=== PATIENT | female | born 1980 | race Caucasian/White ===

== ENCOUNTER 2017-10-18 21:22 | Emergency (ER) | payer OTHER, SELFPAY ==
[2017-10-18 21:23] VITALS: BP 127/80; PULSE 108; RESP 16; TEMP 37.2; O2SAT 99; BMI 32.7
[2017-10-18 23:42] LABS: Absolute Lymphocyte Count 1.47 X10^3/ul (0.83-4.51); Basophil# 0.02 X10^3/uL; Basophil% 0.1 % (0-1); Eosinophil# 0.01 X10^3/uL; Eosinophils% 0.1 % (0-5); Hematocrit 38.7 % (37-47); Lymphocyte # 1.47 X10^3/ul (4.0); Lymphocyte % 10.8 % (19-41); Mean Corp Hgb Conc 33.6 g/gl (32-36); Mean Corpuscular Hgb 28.9 pg (27.0-32.0); Mean Platelet Vol. 9.5 fl (6.2-12.0); Monocyte# 0.99 X10^3/uL; Monocyte% 7.3 % (0-10); Neutrophil # 11.04 X10^3/uL (2.7-7.7); Neutrophil % 81.5 % (47-70); Platelet Count 300 K/mm3 (150-450); RBC Distribution Width SD 40.3 fl (35.1-43.9); White Blood Count 13.6 K/mm3 (4.4-11.0)
[2017-10-18 23:45] LABS: POSITIVE COUNT NO; POSITIVE DIFFERENTIAL NO; POSITIVE MORPHOLOGY NO
[2017-10-18 23:55] LABS: Anion Gap 7 (5-15); BUN 11 mg/dL (7-18); BUN/Creat Ratio 11.6 RATIO (10-20); Calcium,Total 9.4 mg/dL (8.5-10.1); Chloride 102 mmol/L (98-107); Creatinine, Serum 0.95 mg/dL (0.55-1.02); EST Glomerular Filtration Rate 70 mL/min (>60); Est Glom Filt Rate - Afr Amer 84 mL/min (>60); Estimated Creatinine Clearance 68.65 ml/min; Glucose 106 mg/dL (74-106); Potassium 3.9 mmol/L (3.5-5.1); Sodium Level 134 mmol/L (136-145)
--- NOTE | 2017-10-19 00:02 | CT_ITS ---
STUDY: CT SOFT TISSUE NECK WITH CONTRAST REASON FOR EXAM: Female, 37 years old. Body aches. Soft tissue RADIATION DOSAGE (If Supplied By Facility): CTDIvol = ( 19.62 ) mGy, DLP = ( 612.32 ) mGycm TECHNIQUE: The patient was scanned in a multi-detector CT scanner. High resolution transaxial imaging was performed following intravenous administration of 75ML ml of Isovue 300 contrast material. Sagittal and coronal images were reconstructed. Individualized dose optimization techniques were used for this CT. COMPARISON: None. FINDINGS: SUPRAHYOID HEAD AND NECK TURPENTINE DISTILLER SPACE (INCLUDING SUPRAZYGOMATIC PORTION): Normal with no evidence of an accessory parotid lobe. No calcification in parotid duct. PARAPHARYNGEAL SPACE: Normal and symmetric. No evidence of asymmetric pterygoid plexus. RETROPHARYNGEAL SPACE: Normal with no enlarged nodes of Rou[place] laterally CAROTID SPACE: Normal PERIVERTEBRAL SPACE: The prevertebral and paraspinal components are normal. PAROTID SPACE: Negative PHARYNGEAL MUCOSAL SPACE: The nasopharyngeal and oropharyngeal spaces including the tongue base are normal with no tonsillitis, adenoidal hypertrophy or any neoplastic processes. ORAL CAVITY : The mucosal surfaces including the anterior two thirds of the tongue and the submandibular and sublingual spaces are normal INFRAHYOID HEAD AND NECK: VISCERAL SPACE: The thyroid, trachea, esophagus, larynx and hypopharynx are normal. THE CAROTID, RETROPHARYNGEAL, PERIVERTEBRAL and POSTERIOR CERVICAL SPACES (Containing The Spinal Accessory Lymph Nodes): Normal . ORBITS AND PARANASAL SINUSES: Negative CERVICAL LYMPH NODES: A mild level IIa adenopathy on both sides CT/Soft Tissue Neck WITH Contrast IMPRESSION: No evidence of any inflammatory or neoplastic processes in the pharyngeal mucosal space. Specifically there is no tonsillitis or tonsillar abscess. Electronically Signed: Dalton Cruz, at 2:03 EDT Tel , Service support ,
[2017-10-19 00:04] LABS: International Normalized Ratio 1.1; Prothrombin Time (Protime)PT. 13.8 SECONDS (11.7-14.9)
--- NOTE | 2017-10-19 00:07 | ED.DCSUM_ITS ---
- ER Visit Summary Date of Service: 10/19/17 Chief Complaint: Vertigo History of Present Illness: The patient is a 37 F who presents for 1 day of vertigo with associated complaints of sore throat difficulty swallowing. Patient states she has a remote history of vertigo and started having vertigo this morning, with difficulty balancing. As the day progressed she developed a sore throat and is having difficulty swallowing now. She is also having bilateral ear pain and fever at home that she treated with antipyretics. Patient denies any vision changes, chest pain, shortness of breath, cough, nausea or vomiting, abdominal pain or denies any certain for . History of hysterectomy. Physical Examination: Vital signs: afebrile, hemodynamically stable, no hypoxia on room air General: well nourished, well developed, appears ill Skin: very warm, flushed, moist, no rash, no pallor HEENT: normocephalic and atraumatic; PERRL, EOMI, positive horizontal nystagmus , dry mucous membranes on the posterior oropharyngeal erythema, symmetric swelling and mild exudate, bilateral tender cervical lymphadenopathy, no meningismus, submandibular tenderness and mild fullness, no sublingual edema, exam complicated by body habitus and redundant soft tissue of neck Cardiovascular: Tachycardic rate and rhythm without murmurs, no peripheral edema , 2+ pulses all distal extremities Respiratory: No increased work of breathing, lungs are clear to auscultation bilaterally, no rales, rhonchi or wheezing Abdominal: Abdomen is soft, nontender with normoactive bowel sounds, no guarding or rebound, no masses MSK: Moves all extremities, no deformities, normal strength Neuro: Awake and alert, oriented ?4. No facial droop, sensation and motor function intact and symmetric Test Results: Abnormal Lab Results 10/18/17 10/18/17 10/18/17 23:25 23:25 23:25 WBC 13.6 H RBC 4.50 Hgb 13.0 Hct 38.7 MCV 86.0 MCH 28.9 MCHC 33.6 RDW 13.0 RDW Differential 40.3 Plt Count 300 MPV 9.5 Immature Gran % (Auto) 0.200 Neut % (Auto) 81.5 H Lymph % (Auto) 10.8 L Mayes % (Auto) 7.3 Eos % (Auto) 0.1 Baso % (Auto) 0.1 Absolute Neuts (auto) 11.0 H Absolute Lymphs (auto) 1.47 Total Counted Not Reportable PT 13.8 INR 1.1 APTT 32.0 Sodium 134 L Potassium 3.9 Chloride 102 Carbon Dioxide 25.0 Anion Gap 7 BUN 11 Creatinine 0.95 Estim Creat Clear Calc 68.65 Est GFR (MDRD) Af Amer 84 Est GFR (MDRD) Non-Af 70 BUN/Creatinine Ratio 11.6 Glucose 106 Lactic Acid Calcium 9.4 Urine Color Urine Clarity Urine pH Ur Specific [place] Urine Protein Urine Glucose (UA) Urine Ketones Urine Occult Blood Urine Nitrite Urine Bilirubin Urine Urobilinogen Ur Leukocyte Esterase Urine RBC Urine WBC Ur Squamous Epith Cells Urine Bacteria Urine Mucus 10/19/17 10/19/17 00:10 00:20 WBC RBC Hgb Hct MCV MCH MCHC RDW RDW Differential Plt Count MPV Immature Gran % (Auto) Neut % (Auto) Lymph % (Auto) Mayes % (Auto) Eos % (Auto) Baso % (Auto) Absolute Neuts (auto) Absolute Lymphs (auto) Total Counted PT INR APTT Sodium Potassium Chloride Carbon Dioxide Anion Gap BUN Creatinine Estim Creat Clear Calc Est GFR (MDRD) Af Amer Est GFR (MDRD) Non-Af BUN/Creatinine Ratio Glucose Lactic Acid 0.6 Calcium Urine Color Yellow Urine Clarity Sl. Cloudy Urine pH 6.0 Ur Specific [place] 1.025 Urine Protein 15 H Urine Glucose (UA) Normal Urine Ketones Negative Urine Occult Blood 10 H Urine Nitrite Negative Urine Bilirubin Negative Urine Urobilinogen Normal Ur Leukocyte Esterase 25 H Urine RBC 0 SEEN Urine WBC 0-5 SEEN Ur Squamous Epith Cells 50-100 SEEN Urine Bacteria 0 SEEN Urine Mucus 2+ Clinical Impression(s) from Imaging Studies Soft Tissue Neck CT 10/19/17 00:02 IMPRESSION: No evidence of any inflammatory or neoplastic processes in the pharyngeal mucosal space. Specifically there is no tonsillitis or tonsillar abscess. Electronically Signed: Dalton Cruz, at 2:03 EDT Tel , Service support , Chest X-Ray 10/19/17 00:35 IMPRESSION: No acute findings in the lungs Electronically Signed: Dalton Cruz, at 0:58 EDT Tel , Service support , Medications Given Discontinued Medications Acetaminophen (Tylenol) 1,000 mg PO X1 ONE Stop: 10/19/17 00:02 Last Admin: 10/19/17 00:49 Dose: 1,000 mg Dexamethasone (Decadron) 8 mg PO X1 ONE Stop: 10/19/17 03:48 Last Admin: 10/19/17 03:56 Dose: 8 mg Diazepam (Valium) 4 mg IV X1 ONE Stop: 10/19/17 00:03 Diazepam (Valium) 5 mg PO X1 ONE Stop: 10/19/17 00:43 Last Admin: 10/19/17 00:49 Dose: 5 mg Sodium Chloride () 1,000 mls @ 50 mls/hr IV .Q20H GUILLAUME Last Admin: 10/19/17 00:41 Dose: Not Given Sodium Chloride () 1,000 mls @ 500 mls/hr IV .Q2H GUILLAUME Stop: 10/19/17 02:04 Last Admin: 10/19/17 00:49 Dose: 500 mls/hr Penicillin V Potassium (Pen-Vee K , V-Cillin K) 500 mg PO X1 ONE Stop: 10/19/17 03:48 Last Admin: 10/19/17 03:56 Dose: 500 mg Emergency Department Course and Treatment: Pt presents with c/o vertigo with history of same, but vertigo seems triggered today by an infectious pathology, as she has sore throat, difficulty swallowing, general malaise and myalgias. Pt has no measured fever, but is warm and flushed, sweaty. Mild tachycardia. Pt given tylenol for fever/aches and valium for vertigo. IV fluids for hydration. Given the sore throat and difficulty swallowing with sensation of throat swelling deep and discomfort lying flat (although able to do so), CT soft tissue neck performed to look for deep space infection. CT was unremarkable. Pt does have bilateral anterior tender cervical LAD and posterior exudate. Presentation is concerning for strep infection, and strep culture sent. Pt empirically started on PCN VK. Pt given dexamethasone for symptomatic relief. Pt had resolution of vertigo with valium. Pt felt better after fluids and symptomatic control. Pt dc home with rx for PCN and meclizine. Treatment Plan: [] Disposition: [] Impression: strep pharyngitis This note was generated with [employer] dictation software. It may contain incorrect words, spelling, and punctuation that were not noted in review of the chart prior to signing ED Disposition - Plan for ED Patient: Disposition: Home or Assisted Living Chief Complaint: Dizziness Instructions: ED Strep Pharyngitis Poss Prescriptions: Meclizine HCl 25 mg PO TID PRN PRN #20 tab PRN Reason: Vertigo Penicillin V Potassium 500 mg PO BID #20 tab Referrals: Glo Cao [Primary Care Provider] - 3-5 Days if not improving Additional Instructions: Please take your penicillin as prescribed. You were given a dose of steroids in the emergency department to help with the swelling and pain in her throat. You may use [id number] Tylenol or ibuprofen as needed for fever and pain. Drink plenty of fluids to stay hydrated. Use the meclizine as needed for any further vertigo. If you have any worsening of your condition or any new concerning symptoms, please return immediately to the emergency department for another evaluation.
[2017-10-19 00:18] LABS: Bacteria 0 SEEN /hpf (None Seen); Red Blood Cells-Urine 0 SEEN /hpf (0-5)
[2017-10-19 00:19] LABS: Color, Urine Yellow (Yellow); Glucose, Dipstick Normal (Normal); Ketone-Dipstick Negative (Negative); Leukocyte Esterase-Dipstick 25 /ul (Negative); Nitrite-Dipstick Negative (Negative); Occult Blood-Urine 10 /ul (Negative); Protein-Dipstick 15 mg/dl (Negative); Specific Gravity, Urine 1.025 (1.002-1.030); Urine Bilirubin Dipstick Negative (Negative); Urine Clarity Sl. Cloudy (Clear); Urine Urobilinogen Normal (Normal)
[2017-10-19 00:25] LABS: Mucous, Urine 2+ /hpf (<or=2+); Squamous Epithelial Cells - UA 50-100 SEEN /hpf (5-10); White Blood Cells 0-5 SEEN /hpf (0-5)
--- NOTE | 2017-10-19 00:35 | RAD_ITS ---
STUDY: X-RAY CHEST REASON FOR EXAM: Female, 37 years old. Shortness of breath. Sore throat. TECHNIQUE: 1 view COMPARISON: February 23, 2016 FINDINGS: The lungs are clear and expanded. There is no demonstrated pleural abnormality. Normal size heart. Normal mediastinum and kylie. Normal visualized pulmonary arteries. Normal visualized aortic arch and descending thoracic aorta. A mild thoracic scoliosis with convexity to the right. Normal visualized ribs, clavicles, and shoulders. There is no demonstrated abnormality of the visualized soft tissue structures of the upper abdomen. RAD/Chest 1 View (Portable) IMPRESSION: No acute findings in the lungs Electronically Signed: Dalton Cruz, at 0:58 EDT Tel , Service support ,
[2017-10-19] MEDS: 0.9% Normal Saline 1,000 ML 500 ML IV (00:49)
[2017-10-19] MEDS: Acetaminophen 500 MG Tablet 1000 MG PO (00:49)
[2017-10-19] MEDS: diazePAM 5 MG Tablet PO (00:49)
[2017-10-19 00:51] VITALS: BP 113/69; PULSE 102; RESP 20; O2SAT 96
[2017-10-19 00:52] LABS: Lactic Acid 0.6 mmol/L (0.4-2.0)
[2017-10-19 01:53] VITALS: BP 122/60; PULSE 92; RESP 20; TEMP 37; O2SAT 98
[2017-10-19 03:46] VITALS: PULSE 90; RESP 20; O2SAT 99
--- NOTE | 2017-10-19 03:49 | ED.DEP ---
ED Disposition - Plan for ED Patient: Disposition: Home or Assisted Living Chief Complaint: Dizziness Instructions: ED Strep Pharyngitis Poss Prescriptions: Meclizine HCl 25 mg PO TID PRN PRN #20 tab PRN Reason: Vertigo Penicillin V Potassium 500 mg PO BID #20 tab Referrals: Glo Cao [Primary Care Provider] - 3-5 Days if not improving Additional Instructions: Please take your penicillin as prescribed. You were given a dose of steroids in the emergency department to help with the swelling and pain in her throat. You may use [id number] Tylenol or ibuprofen as needed for fever and pain. Drink plenty of fluids to stay hydrated. Use the meclizine as needed for any further vertigo. If you have any worsening of your condition or any new concerning symptoms, please return immediately to the emergency department for another evaluation.
--- NOTE | 2017-10-19 03:53 | DCINST.ED_ITS ---
ED Disposition - Plan for ED Patient: Disposition: Home or Assisted Living Chief Complaint: Dizziness Instructions: ED Strep Pharyngitis Poss Prescriptions: Meclizine HCl 25 mg PO TID PRN PRN #20 tab PRN Reason: Vertigo Penicillin V Potassium 500 mg PO BID #20 tab Referrals: Glo Cao [Primary Care Provider] - 3-5 Days if not improving Additional Instructions: Please take your penicillin as prescribed. You were given a dose of steroids in the emergency department to help with the swelling and pain in her throat. You may use [id number] Tylenol or ibuprofen as needed for fever and pain. Drink plenty of fluids to stay hydrated. Use the meclizine as needed for any further vertigo. If you have any worsening of your condition or any new concerning symptoms, please return immediately to the emergency department for another evaluation.
[2017-10-19] MEDS: Penicillin Vk 250 MG Tablet 500 MG PO (03:56)
[2017-10-19 04:00] VITALS: BP 122/68; PULSE 87; RESP 18; O2SAT 96
== END 2017-10-19 04:01 | disposition home or self-care (01) ==
PROVIDERS: Emergency Provider Emergency Medicine; Family Provider Internal Medicine; PCP Internal Medicine
DX: J02.0 Streptococcal pharyngitis (principal); Z79.899 Other long term (current) drug therapy
CPT/HCPCS: 70491; 71045; 80048; 81001; 83605; 85025; 85610; 85730; 87040; 87086; 87088; 87880; 96360; 96361; 99285; J7030; Q9967; A4216

== ENCOUNTER 2018-03-31 11:06 | Emergency (ER) | payer OTHER, SELFPAY ==
[2018-03-31 11:09] VITALS: BP 115/63; PULSE 82; RESP 13; TEMP 36.7; O2SAT 98; BMI 33.4
[2018-03-31 11:13] VITALS: PULSE 78; RESP 11; O2SAT 98
--- NOTE | 2018-03-31 11:22 | EKG12_ITS ---
Test Reason : SYNCOPE Blood Pressure : / mmHG Vent. Rate : 081 BPM Atrial Rate : 081 BPM P-R Int : 128 ms QRS Dur : 084 ms QT Int : 374 ms P-R-T Axes : 010 051 011 degrees QTc Int : 434 ms Normal sinus rhythm Normal ECG Confirmed by JACK WU MD ([id number]), movie editor FARNAZ MATHEWS ([id number]) on 04/03/2018 3:08:16 PM Referred By: MENDY Confirmed By:JACK WU MD
--- NOTE | 2018-03-31 11:23 | ED.VISSUMM ---
- ER Visit Summary Date of Service: 03/31/18 Chief Complaint: Syncopal episode in [place] History of Present Illness: The patient is a 37 F history of depression and anxiety. Patient was at [employer] today she said she felt dizzy when the sit down and kind of missed the chair and onto the floor. Her significant other is with her and said she was not injured. He believes she might have been unconscious for as long as 5 minutes. No seizure activity. She states she passed out 5-7 years ago. She has no cardiac history. States she has been feeling fine. She has been under a lot of stress earlier this year around June they lost a child to medical problems. She states she has been eating and drinking less. Physical Examination: Middle-aged female. Vital signs are stable. Afebrile. She is emotionally upset and tearful. She is anxious. She is in no physical distress. HEENT exam pupils round reactive light. Dry mucous membranes. No signs of trauma to her face or scalp. No facial droop. Normal speech. Neck nontender. Trachea midline. No lymphadenopathy. Lungs clear to auscultation bilaterally. Heart regular rhythm rate about 80 no murmur. Chest wall nontender. Abdomen soft nontender. Normal bowel sounds no peritoneal signs. Patient is moving all 4 extremities. She is neurovascularly intact. She has equal symmetrical special services coordinator strength. Dorsi plantar flexion intact. She can lift either leg off the bed. Neurologically she is awake alert without any focal motor or sensory deficits. Normal speech. She is emotionally anxious and tearful. Test Results: CBC normal. White count of 8. Hemoglobin 12. Electrolytes normal. Normal gap and creatinine. Orthostatic vital signs were negative. Patient stood without any difficulty. EKG sinus rhythm rate 81 with no acute A. No dysrhythmia. No signs of ischemia. Emergency Department Course and Treatment: Patient had a syncopal event. She has a normal exam. P.o. Ativan for anxiety Treatment Plan: On repeat exam at 1300 patient is doing well. I went over all test results with her, her significant other and other females that were present in the room. She is comfortable being discharged home and will follow-up as an outpatient with her primary care provider. Disposition: Discharge Impression: Acute syncope uncertain etiology Acute anxiety This note was generated with [employer] software. It may contain incorrect words, spelling, and punctuation that were not noted in review of the chart prior to signing ED Disposition - Plan for ED Patient: Chief Complaint: Syncope Referrals: Glo Cao [Primary Care Provider] -
--- NOTE | 2018-03-31 11:26 | ED.DCSUM_ITS ---
- ER Visit Summary Date of Service: 03/31/18 Chief Complaint: Syncopal episode in [employer] History of Present Illness: The patient is a 37 F history of depression and anxiety. Patient was at [employer] today she said she felt dizzy when the sit down and kind of missed the chair and onto the floor. Her significant other is with her and said she was not injured. He believes she might have been unconscious for as long as 5 minutes. No seizure activity. She states she passed out 5-7 years ago. She has no cardiac history. States she has been feeling fine. She has been under a lot of stress earlier this year around June they lost a child to medical problems. She states she has been eating and drinking less. Physical Examination: Middle-aged female. Vital signs are stable. Afebrile. She is emotionally upset and tearful. She is anxious. She is in no physical distress. HEENT exam pupils round reactive light. Dry mucous membranes. No signs of trauma to her face or scalp. No facial droop. Normal speech. Neck nontender. Trachea midline. No lymphadenopathy. Lungs clear to auscultation bilaterally. Heart regular rhythm rate about 80 no murmur. Chest wall nontender. Abdomen soft nontender. Normal bowel sounds no peritoneal signs. Patient is moving all 4 extremities. She is neurovascularly intact. She has equal symmetrical rural health consultant strength. Dorsi plantar flexion intact. She can lift either leg off the bed. Neurologically she is awake alert without any focal motor or sensory deficits. Normal speech. She is emotionally anxious and tearful. Test Results: CBC normal. White count of 8. Hemoglobin 12. Electrolytes normal. Normal gap and creatinine. Orthostatic vital signs were negative. Patient stood without any difficulty. EKG sinus rhythm rate 81 with no acute A. No dysrhythmia. No signs of ischemia. Emergency Department Course and Treatment: Patient had a syncopal event. She has a normal exam. P.o. Ativan for anxiety Treatment Plan: On repeat exam at 1300 patient is doing well. I went over all test results with her, her significant other and other females that were present in the room. She is comfortable being discharged home and will follow-up as an outpatient with her primary care provider. Disposition: Discharge Impression: Acute syncope uncertain etiology Acute anxiety This note was generated with [employer] software. It may contain incorrect words, spelling, and punctuation that were not noted in review of the chart prior to signing ED Disposition - Plan for ED Patient: Chief Complaint: Syncope Referrals: Glo Cao [Primary Care Provider] -
[2018-03-31] MEDS: Aspirin 81 MG TAB.CHEW 324 MG PO (11:30)
[2018-03-31] MEDS: 0.9% Normal Saline 1,000 ML 999 ML IV (11:30)
[2018-03-31] MEDS: LORazepam 1 MG Tablet PO (11:30)
[2018-03-31 11:39] LABS: Absolute Lymphocyte Count 3.23 X10^3/ul (0.83-4.51); Basophil# 0.06 X10^3/uL; Basophil% 0.7 % (0-1); Eosinophil# 0.24 X10^3/uL; Hemoglobin 12.3 g/dl (12.0-15.0); Lymphocyte # 3.23 X10^3/ul (4.0); Lymphocyte % 40.1 % (19-41); Mean Corp Hgb Conc 33.2 g/gl (32-36); Mean Corpuscular Hgb 28.5 pg (27.0-32.0); Mean Corpuscular Volume 85.6 fL (81-99); Monocyte# 0.53 X10^3/uL; Monocyte% 6.6 % (0-10); Neutrophil # 3.99 X10^3/uL (2.7-7.7); Neutrophil % 49.5 % (47-70); POSITIVE COUNT NO; POSITIVE DIFFERENTIAL NO; POSITIVE MORPHOLOGY NO; Platelet Count 291 K/mm3 (150-450); RBC Distribution Width CV 12.9 % (11.6-14.6); Red Blood Count 4.32 M/mm3 (4.2-5.4); White Blood Count 8.1 K/mm3 (4.4-11.0)
[2018-03-31 11:46] LABS: Anion Gap 5 (5-15); BUN 14 mg/dL (7-18); BUN/Creat Ratio 17.4 RATIO (10-20); Calcium,Total 9.4 mg/dL (8.5-10.1); Chloride 108 mmol/L (98-107); EST Glomerular Filtration Rate 84 mL/min (>60); Est Glom Filt Rate - Afr Amer 102 mL/min (>60); Estimated Creatinine Clearance 81.53 ml/min; Glucose 96 mg/dL (74-106); Potassium 4.2 mmol/L (3.5-5.1); Sodium Level 139 mmol/L (136-145)
[2018-03-31 12:01] VITALS: BP 127/83; PULSE 74; RESP 16; O2SAT 98
--- NOTE | 2018-03-31 12:45 | ED.RN ---
Was called to bedside with report pt had passed out. Reported she did not respond to painful stimuli. Pt was alert as I entered room and verbally answered my questions. She denied pain but stated she felt like she couldn't breathe. The following vital signs were current 127/83, 74, 15, 98%. She displayed no distress in her resp effort. She seemed groggy.
[2018-03-31 13:02] VITALS: BP 121/79; BP 123/81; BP 126/74; PULSE 71; PULSE 83
--- NOTE | 2018-03-31 13:06 | ED.DEP ---
ED Disposition - Plan for ED Patient: Disposition: Home or Assisted Living Chief Complaint: Syncope Instructions: ED Fainting Unkn Cause Referrals: Glo Cao [Primary Care Provider] - As Needed Additional Instructions: Plenty of fluids and rest. Follow-up with your primary care provider for repeat evaluation.
[2018-03-31 13:14] VITALS: BP 123/81; PULSE 83; RESP 16; O2SAT 99
--- OUTSIDE RECORDS SUMMARY | 2018-07-03 13:22 | XMS RPT_ITS ---
:1980 Author Organization OHIP Care Team Providers Name Role Phone [place], [place] Primary Care Unavailable James Flores Attending Unavailable [place], [place] Primary Care Unavailable Vanessa Rausch Attending Unavailable Zumbar, Rafa Admitting Unavailable Zumbar, Rafa Attending Unavailable Venedocia, Nj S Primary Care Unavailable Zumbar, Rafa Admitting Unavailable Zumbar, Rafa Attending Unavailable Venedocia, Nj S Primary Care Unavailable Venedocia, Nj S Attending Unavailable Venedocia, Nj S Primary Care Unavailable Zumbar, Rafa Admitting Unavailable Zumbar, Rafa Attending Unavailable [place], Nj S Primary Care Unavailable Gutierrez, Leila S Admitting Unavailable Gutierrez, Leila S Attending Unavailable Vened[place]ia, Nj S Primary Care Unavailable [place]ened[place]ia, Nj S Attending Unavailable Vened[place]ia, Nj S Primary Care Unavailable Vened[place]ia, Nj S Attending Unavailable Venedocia, Nj S Primary Care Unavailable Zumbar, Rafa Admitting Unavailable Zumbar, Rafa Attending Unavailable Venedocia, Nj S Primary Care Unavailable Venedocia, Nj S Attending Unavailable Vened[place]ia, Nj S Primary Care Unavailable DEANGELO LIZAMA Attending Unavailable PROBLEMS PROBLEMS No Problem Records FoundPROCEDURES PROCEDURES No Procedure Records FoundRESULTS RESULTS 12 LEAD ELECTROCARDIOGRAM Observed: 04/03/2018 Status: F Source: ACE 3:08 PM [facility] Cardiovascular Services [address] [place] [address] 12 Lead EKG 03/31/18 1135 MR#: [id number] Acct: [id number] Name: RORO CROCKETT Rep #: [id number] : 1980 37 From: Juan R Green MD Attending Dr: Status: DEP ER Ordering Dr: James Flores MD Date: 03/31/18 Location: ED Sex: F C Admitted: Test Reason : SYNCOPE Blood Pressure : / mmHG Vent. Rate : 081 BPM Atrial Rate : 081 BPM P-R Int : 128 ms QRS Dur : 084 ms QT Int : 374 ms P-R-T Axes : 010 051 011 degrees QTc Int : 434 ms Normal sinus rhythm Normal ECG Confirmed by JUAN R GREEN MD ([id number]), editor farm journal FARNAZ MATHEWS ([id number]) on 04/03/2018 3:08:16 PM Referred By: Confirmed By:JUAN R GREEN MD 04/03/18 1508 Date Juan R Green MD CC: James Flores MD; [place] Saez EMERGENCY DEPARTMENT Observed: 03/31/2018 Status: F Source: ACE SUMMARY 4:03 PM [facility] Medical Records Department [address] [place] [address] Emergency Department Summary 03/31/18 1123 MR#: [id number] Acct: [id number] Name: RORO CROCKETT Rep #: [id number] : 1980 37 From: James Flores MD PCP: [place] ROJO Status: DEP ER - ER Visit Summary Date of Service: 03/31/18 Chief Complaint: Syncopal episode in restoration History of Present Illness: The patient is a 37 F history of depression and anxiety. Patient was at restoration today she said she felt dizzy when the sit down and kind of missed the chair and onto the floor. Her significant other is with her and said she was not injured. He believes she might have been unconscious for as long as 5 minutes. No seizure activity. She states she passed out 5-7 years ago. She has no cardiac history. States she has been feeling fine. She has been under a lot of stress earlier this year around June they lost a child to medical problems. She states she has been eating and drinking less. Physical Examination: Middle-aged female. Vital signs are stable. Afebrile. She is emotionally upset and tearful. She is anxious. She is in no physical distress. HEENT exam pupils round reactive light. Dry mucous membranes. No signs of trauma to her face or scalp. No facial droop. Normal speech. Neck nontender. Trachea midline. No lymphadenopathy. Lungs clear to auscultation bilaterally. Heart regular rhythm rate about 80 no murmur. Chest wall nontender. Abdomen soft nontender. Normal bowel sounds no peritoneal signs. Patient is moving all 4 extremities. She is neurovascularly intact. She has equal symmetrical security coordinator strength. Dorsi plantar flexion intact. She can lift either leg off the bed. Neurologically she is awake alert without any focal motor or sensory deficits. Normal speech. She is emotionally anxious and tearful. Test Results: CBC normal. White count of 8. Hemoglobin 12. Electrolytes normal. Normal gap and creatinine. Orthostatic vital signs were negative. Patient stood without any difficulty. EKG sinus rhythm rate 81 with no acute A. No dysrhythmia. No signs of ischemia. Emergency Department Course and Treatment: Patient had a syncopal event. She has a normal exam. P.o. Ativan for anxiety Treatment Plan: On repeat exam at 1300 patient is doing well. I went over all test results with her, her significant other and other females that were present in the room. She is comfortable being discharged home and will follow-up as an outpatient with her primary care provider. Disposition: Discharge Impression: Acute syncope uncertain etiology Acute anxiety This note was generated with Validus dictation software. It may contain incorrect words, spelling, and punctuation that were not noted in review of the chart prior to signing ED Disposition - Plan for ED Patient: Chief Complaint: Syncope Referrals: N[place] Rojo [Primary Care Provider] - What to do if you have Problems For any increased pain, shortness of breath, bleeding, nausea or vomiting, chest pain, or any unexpected problems, contact your Primary Care Provider. Call [facility] ([phone]) or report to the closest Emergency Room. Call 911 if necessary. 03/31/181602 <Electronically signed by James Flores MD> Date James Flores MD Cosigner Signature (If Indicated): Date CC: [place] ROJO DISCHARGE INSTRUCTION Observed: 03/31/2018 Status: F Source: REED 4:03 PM [facility] REPOSITORY [facility] Medical Records Department [address] [place] [address] Discharge Instruction 03/31/18 1306 MR#: [id number] Acct: [id number] Name: RORO CROCKETT Rep #: [id number] : 1980 37 From: James Flores MD PCP: [place] ROJO Status: DEP ER ED Disposition - Plan for ED Patient: Disposition: Home or Assisted Living Chief Complaint: Syncope Instructions: ED Fainting Unkn Cause Referrals: Nj Rojo [Primary Care Provider] - As Needed Additional Instructions: Plenty of fluids and rest. Follow-up with your primary care provider for repeat evaluation. What to do if you have Problems For any increased pain, shortness of breath, bleeding, nausea or vomiting, chest pain, or any unexpected problems, contact your Primary Care Provider. Call [facility] ([phone]) or report to the closest Emergency Room. Call 911 if necessary. 03/31/181602 <Electronically signed by James Flores MD> Date James Flores MD Cosigner Signature (If Indicated): Date CC: [place] ROJO CBC W/DIFF, AUTOMATED Collected: 03/31/2018 Status: F Source: REED 11:13 AM [facility] REPOSITORY TYPE CODE TESTS RESULT OUT OF RANGE REFERENCE UNITS LAB L100.1000 4.4-11.0 K/mm3 Normal WBC 8.1 LAB L100.1200 4.2-5.4 M/mm3 Normal RBC 4.32 LAB L100.1300 12.0-15.0 g/dl Normal HGB 12.3 LAB L100.1400 37-47 % Normal HCT 37.0 LAB L100.1500 81-99 fL Normal MCV 85.6 LAB L100.1600 27.0-32.0 pg Normal MCH 28.5 LAB L100.1700 32-36 g/gl Normal MCHC 33.2 LAB L100.1810 11.6-14.6 % Normal RDW CV 12.9 LAB L100.1820 35.1-43.9 fl Normal RDW SD 41.0 LAB L100.1900 150-450 K/mm3 Normal PLT 291 LAB L100.2000 6.2-12.0 fl Normal MPV 9.0 LAB L100.2100 47-70 % Normal NEUT% 49.5 LAB L100.2200 19-41 % Normal LY% 40.1 LAB L100.2300 0-10 % Normal MONO% 6.6 LAB L100.2400 0-5 % Normal EO% 3.0 LAB L100.2500 0-1 % Normal BASO% 0.7 LAB L100.2550 0.0-0.9 % Normal IM GRAN % 0.100 Result Comment: IG% - Immature Granulocytes (promyelocytes, myelocytes and metamyelocytes) > 1% indicates that a LEFT SHIFT is Present. LAB L100.2620 2.0-7.7 X10 3/uL Normal Absolute Neut 4.0 LAB L100.2720 0.83-4.51 X10 3/ul Normal Absolute Lymph 3.23 Performed By: #### L100.0100 #### [facility] [place], [address] BASIC METABOLIC Collected: 03/31/2018 Status: F Source: REED PROFILE (BMP) 11:13 AM [facility] REPOSITORY TYPE CODE TESTS RESULT OUT OF RANGE REFERENCE UNITS LAB L501.0100 74-106 mg/dL Normal GLU 96 Result Comment: Please note revised GLUCOSE reference range effective 2017. LAB L501.1000 7-18 mg/dL Normal BUN 14 LAB L501.1100 0.55-1.02 mg/dL Normal CREAT,SERUM 0.80 Result Comment: The validity of the calculated GFR AND GFRAA in patients over 70 years has not been determined. Clinical correlation is essential. LAB L501.1110 >60 mL/min Normal EST GFR 84 Result Comment: Non- GFR Calc LAB L501.1115 >60 mL/min Normal EST GFR - AA 102 Result Comment: GFR Calc LAB L501.1255 ml/min Normal Estimated CRCL 81.53 LAB L501.1300 10-20 RATIO Normal BUN/CRE 17.4 LAB L501.2200 8.5-10 mg/dL Normal .1 CA 9.4 LAB L501.5300 136-14 mmol/L Normal 5 NA 139 LAB L501.5600 3.5-5. mmol/L Normal 1 K 4.2 LAB L501.5900 98-107 mmol/L High CL 108 LAB L501.6100 21.0-3 mmol/L Normal 2.0 CO2 26.0 LAB L501.6200 5-15 Normal GAP 5 Performed By: #### L500.2500 #### [facility] [address] [facility] [address] [place], [address] EMERGENCY DEPARTMENT Observed: 10/19/2017 Status: F Source: REED SUMMARY 7:59 PM [facility] REPOSITORY [facility] Medical Records Department [address] [place] [address] Emergency Department Summary 10/19/17 0005 MR#: [id number] Acct: [id number] Name: RORO CROCKETT Rep #: [id number] : 1980 37 From: Vanessa Rausch MD PCP: [place] ROJO Status: DEP ER - ER Visit Summary Date of Service: 10/19/17 Chief Complaint: Vertigo History of Present Illness: The patient is a 37 F who presents for 1 day of vertigo with associated complaints of sore throat difficulty swallowing. Patient states she has a remote history of vertigo and started having vertigo this morning, with difficulty balancing. As the day progressed she developed a sore throat and is having difficulty swallowing now. She is also having bilateral ear pain and fever at home that she treated with antipyretics. Patient denies any vision changes, chest pain, shortness of breath, cough, nausea or vomiting, abdominal pain or denies any certain for . History of hysterectomy. Physical Examination: Vital signs: afebrile, hemodynamically stable, no hypoxia on room air General: well nourished, well developed, appears ill Skin: very warm, flushed, moist, no rash, no pallor HEENT: normocephalic and atraumatic; PERRL, EOMI, positive horizontal nystagmus, dry mucous membranes on the posterior oropharyngeal erythema, symmetric swelling and mild exudate, bilateral tender cervical lymphadenopathy, no meningismus, submandibular tenderness and mild fullness, no sublingual edema, exam complicated by body habitus and redundant soft tissue of neck Cardiovascular: Tachycardic rate and rhythm without murmurs, no peripheral edema, 2+ pulses all distal extremities Respiratory: No increased work of breathing, lungs are clear to auscultation bilaterally, no rales, rhonchi or wheezing Abdominal: Abdomen is soft, nontender with normoactive bowel sounds, no guarding or rebound, no masses MSK: Moves all extremities, no deformities, normal strength Neuro: Awake and alert, oriented 4. No facial droop, sensation and motor function intact and symmetric Test Results: Abnormal Lab Results WBC 13.6 H RBC 4.50 Hgb 13.0 Hct 38.7 MCV 86.0 MCH 28.9 MCHC 33.6 RDW 13.0 RDW Differential 40.3 WBC RBC Clinical Impression(s) from Imaging Studies Soft Tissue Neck CT 10/19/17 00:02 IMPRESSION: No evidence of any inflammatory or neoplastic processes in the pharyngeal mucosal space. Specifically there is no tonsillitis or tonsillar abscess. Electronically Signed: Dalton Cruz, at 2:03 EDT Tel , Service support , Chest X-Ray 10/19/17 00:35 IMPRESSION: No acute findings in the lungs Electronically Signed: Dalton Cruz, at 0:58 EDT Tel , Service support , Medications Given Discontinued Medications Acetaminophen (Tylenol) 1,000 mg PO X1 ONE Stop: 10/19/17 00:02 Last Admin: 10/19/17 00:49 Dose: 1,000 mg Dexamethasone (Decadron) 8 mg PO X1 ONE Stop: 10/19/17 03:48 Last Admin: 10/19/17 03:56 Dose: 8 mg Diazepam (Valium) 4 mg IV X1 ONE Stop: 10/19/17 00:03 Diazepam (Valium) 5 mg PO X1 ONE Stop: 10/19/17 00:43 Last Admin: 10/19/17 00:49 Dose: 5 mg Sodium Chloride () 1,000 mls @ 50 mls/hr IV .Q20H GUILLAUME Last Admin: 10/19/17 00:41 Dose: Not Given Sodium Chloride () 1,000 mls @ 500 mls/hr IV .Q2H GUILLAUME Stop: 10/19/17 02:04 Last Admin: 10/19/17 00:49 Dose: 500 mls/hr Penicillin V Potassium (Pen-Vee K , V-Cillin K) 500 mg PO X1 ONE Stop: 10/19/17 03:48 Last Admin: 10/19/17 03:56 Dose: 500 mg Emergency Department Course and Treatment: Pt presents with c/o vertigo with history of same, but vertigo seems triggered today by an infectious pathology, as she has sore throat, difficulty swallowing, general malaise and myalgias. Pt has no measured fever, but is warm and flushed, sweaty. Mild tachycardia. Pt given tylenol for fever/aches and valium for vertigo. IV fluids for hydration. Given the sore throat and difficulty swallowing with sensation of throat swelling deep and discomfort lying flat (although able to do so), CT soft tissue neck performed to look for deep space infection. CT was unremarkable. Pt does have bilateral anterior tender cervical LAD and posterior exudate. Presentation is concerning for strep infection, and strep culture sent. Pt empirically started on PCN VK. Pt given dexamethasone for symptomatic relief. Pt had resolution of vertigo with valium. Pt felt better after fluids and symptomatic control. Pt dc home with rx for PCN and meclizine. Treatment Plan: [] Disposition: [] Impression: strep pharyngitis This note was generated with Validus dictation software. It may contain incorrect words, spelling, and punctuation that were not noted in review of the chart prior to signing ED Disposition - Plan for ED Patient: Disposition: Home or Assisted Living Chief Complaint: Dizziness Instructions: ED Strep Pharyngitis Poss Prescriptions: Meclizine HCl 25 mg PO TID PRN PRN #20 tab PRN Reason: Vertigo Penicillin V Potassium 500 mg PO BID #20 tab Referrals: Nj Rojo [Primary Care Provider] - 3-5 Days if not improving Additional Instructions: Please take your penicillin as prescribed. You were given a dose of steroids in the emergency department to help with the swelling and pain in her throat. You may use mygk-azg-[id number] Tylenol or ibuprofen as needed for fever and pain. Drink plenty of fluids to stay hydrated. Use the meclizine as needed for any further vertigo. If you have any worsening of your condition or any new concerning symptoms, please return immediately to the emergency department for another evaluation. What to do if you have Problems For any increased pain, shortness of breath, bleeding, nausea or vomiting, chest pain, or any unexpected problems, contact your Primary Care Provider. Call [facility] ([phone]) or report to the closest Emergency Room. Call 911 if necessary. 10/19/171958 <Electronically signed by Vanessa Rausch MD> Date Vanessa Rausch MD Cosigner Signature (If Indicated): Date CC: [place] ROJO DISCHARGE INSTRUCTION Observed: 10/19/2017 Status: F Source: REED 7:59 PM [facility] REPOSITORY [facility] Medical Records Department [address] [place] [address] Discharge Instruction 10/19/17 0349 MR#: [id number] Acct: [id number] Name: RORO CROCKETT Rep #: [id number] : 1980 37 From: Vanessa Rausch MD PCP: [place] ROJO Status: DEP ER ED Disposition - Plan for ED Patient: Disposition: Home or Assisted Living Chief Complaint: Dizziness Instructions: ED Strep Pharyngitis Poss Prescriptions: Meclizine HCl 25 mg PO TID PRN PRN #20 tab PRN Reason: Vertigo Penicillin V Potassium 500 mg PO BID #20 tab Referrals: Nj Rojo [Primary Care Provider] - 3-5 Days if not improving Additional Instructions: Please take your penicillin as prescribed. You were given a dose of steroids in the emergency department to help with the swelling and pain in her throat. You may use xvht-kxj-pvsmeua Tylenol or ibuprofen as needed for fever and pain. Drink plenty of fluids to stay hydrated. Use the meclizine as needed for any further vertigo. If you have any worsening of your condition or any new concerning symptoms, please return immediately to the emergency department for another evaluation. What to do if you have Problems For any increased pain, shortness of breath, bleeding, nausea or vomiting, chest pain, or any unexpected problems, contact your Primary Care Provider. Call [facility] ([phone]) or report to the closest Emergency Room. Call 911 if necessary. 10/19/171958 <Electronically signed by Vanessa Rausch MD> Date Vanessa Rausch MD Cosigner Signature (If Indicated): Date CC: [place] ROJO Observed: 10/19/2017 Status: F Source: ACE STREP A (THROAT 12:30 AM [facility] RAPID PHYLLIS) REPOSITORY Order Date: 10/19/17 Strep A Rapid Rapid Strep A Screen NEGATIVE A Disk (Conf. Cult) Negative for Strep Group A : All NEGATIVE screens will be confirmed with a culture. Performed By: #### M100.676 #### [facility] [address] [facility] [address] [place], [address] LACTIC ACID Collected: 10/19/2017 Status: F Source: ACE 12:20 AM [facility] REPOSITORY Order Comment: Yes/No query for Sepsis Lactate Rule Y TYPE CODE TESTS RESULT OUT OF RANGE REFERENCE UNITS LAB L503.6005 0.4-2.0 mmol/L Normal LACTIC ACID 0.6 Performed By: #### L503.6005 #### [facility] [facility] [place], [address] Observed: 10/19/2017 Status: F Source: REED CULTURE, BLOOD (WB) 12:20 AM [facility] REPOSITORY BC No growth in 5 days. Performed By: #### M200.1000 #### [facility] [address] [place] [address]. [place], [address] Observed: 10/19/2017 Status: F Source: REED CULTURE, BLOOD (WB) 12:20 AM [facility] REPOSITORY BC No growth in 5 days. Performed By: #### M200.1000 #### [facility] [address] [facility] [place], [place], [address] URINALYSIS, COMPLETE Collected: 10/19/2017 Status: F Source: REED 12:10 AM [facility] REPOSITORY Order Comment: How was Urine Obtained? CLEAN CATCH TYPE CODE TESTS RESULT OUT OF RANGE REFERENCE UNITS LAB L400.3000 Yellow COLOR Normal Yellow LAB L400.3050 Clear Normal CLARITY Sl. Cloudy LAB L400.3200 Normal mg/dl Normal GLUCOSE, UR Normal LAB L400.3300 Negative mg/dL Normal BILIRUBIN URINE Negative LAB L400.3400 Negative mg/dl Normal KETONE UR Negative LAB L400.3465 1.002-1.030 Normal SP.GR. DIPSTX 1.025 LAB L400.3550 5.0 - 8.0 pH UR Normal 6.0 LAB L400.3600 Negative mg/dl High PROT 15 DIPSTX LAB L400.3700 Normal mg/dl Normal UROBILI Normal LAB L400.3750 Negative Normal NITRITE UR Negative LAB L400.3780 Negative /ul High 10 OCCULT BLOOD-UR LAB L400.3800 Negative /ul High LEUK 25 ESTERASE LAB L400.4050 0-5 /hpf WBC Normal 0-5 SEEN LAB L400.4100 0-5 /hpf 0 Normal RBC-UA SEEN LAB L400.4150 5-10 /hpf SQUAM Normal EPI 50-100 SEEN LAB L400.4300 None Seen /hpf 0 Normal BACTERIA SEEN LAB L400.4350 <or=2+ /hpf 2+ Normal MUCUS, URINE Performed By: #### L400.0001 #### [facility] [address] [place], [address] Observed: 10/19/2017 Status: F Source: ACE CULTURE, URINE 12:10 AM [facility] REPOSITORY Order Date: 10/19/17 Urine Culture ORGANISM 1: Mixed Gram Positive Organisms [place] Count 11,000-25,000 MIX CULTURE Mixed contaminants. Submit a new specimen if indicated. Performed By: #### M100.0650 #### [facility] [address] [place], [address] CHEST 1 VIEW Observed: 10/19/2017 Status: F Source: REED (PORTABLE) 12:04 AM [facility] REPOSITORY [facility] Imaging Services [address] [place] [address] Chest 1 View (Portable) MR#: [id number] Acct: [id number] Name: RORO CROCKETT Rep #: [id number] : 1980 F 37 From: Dalton Cruz MD PCP: [place] ROJO Status: REG ER Study: Chest 1 View (Portable) Date of Exam: 10/19/17 Exam# [id number] Ordering Dr: Vanessa Rausch MD STUDY: X-RAY CHEST REASON FOR EXAM: Female, 37 years old. Shortness of breath. Sore throat. TECHNIQUE: 1 view COMPARISON: February 23, 2016 FINDINGS: The lungs are clear and expanded. There is no demonstrated pleural abnormality. Normal size heart. Normal mediastinum and kylie. Normal visualized pulmonary arteries. Normal visualized aortic arch and descending thoracic aorta. A mild thoracic scoliosis with convexity to the right. Normal visualized ribs, clavicles, and shoulders. There is no demonstrated abnormality of the visualized soft tissue structures of the upper abdomen. RAD/Chest 1 View (Portable) IMPRESSION: No acute findings in the lungs Electronically Signed: Dalton Cruz, at 0:58 EDT Tel , Service support , CC: [place] ROJO; Vanessa Rausch MD Concentrator Operator: Signed SOFT TISSUE NECK WITH Observed: 10/19/2017 Status: F Source: REED CONTRAST 12:04 AM [facility] REPOSITORY [facility] Imaging Services [address] [place] [address] Soft Tissue Neck WITH Contrast MR#: [id number] Acct: [id number] Name: RORO CROCKETT Rep #: [id number] : 1980 F 37 From: Dalton Cruz MD PCP: [place] ROJO Status: REG ER Study: Soft Tissue Neck WITH Contrast Date of Exam: 10/19/17 Exam# [id number] Ordering Dr: Vanessa Rausch MD STUDY: CT SOFT TISSUE NECK WITH CONTRAST REASON FOR EXAM: Female, 37 years old. Body aches. Soft tissue RADIATION DOSAGE (If Supplied By Facility): CTDIvol = ( 19.62 ) mGy, DLP = ( 612.32 ) mGycm TECHNIQUE: The patient was scanned in a multi-detector CT scanner. High resolution transaxial imaging was performed following intravenous administration of 75ML ml of Isovue 300 contrast material. Sagittal and coronal images were reconstructed. Individualized dose optimization techniques were used for this CT. COMPARISON: None. FINDINGS: SUPRAHYOID HEAD AND NECK NREMT SPACE (INCLUDING SUPRAZYGOMATIC PORTION): Normal with no evidence of an accessory parotid lobe. No calcification in parotid duct. PARAPHARYNGEAL SPACE: Normal and symmetric. No evidence of asymmetric pterygoid plexus. RETROPHARYNGEAL SPACE: Normal with no enlarged nodes of Rouvier laterally CAROTID SPACE: Normal PERIVERTEBRAL SPACE: The prevertebral and paraspinal components are normal. PAROTID SPACE: Negative PHARYNGEAL MUCOSAL SPACE: The nasopharyngeal and oropharyngeal spaces including the tongue base are normal with no tonsillitis, adenoidal hypertrophy or any neoplastic processes. ORAL CAVITY : The mucosal surfaces including the anterior two thirds of the tongue and the submandibular and sublingual spaces are normal INFRAHYOID HEAD AND NECK: VISCERAL SPACE: The thyroid, trachea, esophagus, larynx and hypopharynx are normal. THE CAROTID, RETROPHARYNGEAL, PERIVERTEBRAL and POSTERIOR CERVICAL SPACES (Containing The Spinal Accessory Lymph Nodes): Normal . ORBITS AND PARANASAL SINUSES: Negative CERVICAL LYMPH NODES: A mild level IIa adenopathy on both sides CT/Soft Tissue Neck WITH Contrast IMPRESSION: No evidence of any inflammatory or neoplastic processes in the pharyngeal mucosal space. Specifically there is no tonsillitis or tonsillar abscess. Electronically Signed: [place] DarlenebrianXavi, at 2:03 EDT Tel , Service support , CC: [place] ROJO; Vanessa Rausch MD Concentrator Operator: Signed CBC W/DIFF, AUTOMATED Collected: 10/18/2017 Status: F Source: REED 11:25 PM [facility] REPOSITORY TYPE CODE TESTS RESULT OUT OF RANGE REFERENCE UNITS LAB L100.1000 4.4-11.0 K/mm3 High WBC 13.6 LAB L100.1200 4.2-5.4 M/mm3 Normal RBC 4.50 LAB L100.1300 12.0-15.0 g/dl Normal HGB 13.0 LAB L100.1400 37-47 % Normal HCT 38.7 LAB L100.1500 81-99 fL Normal MCV 86.0 LAB L100.1600 27.0-32.0 pg Normal MCH 28.9 LAB L100.1700 32-36 g/gl Normal MCHC 33.6 LAB L100.1810 11.6-14.6 % Normal RDW CV 13.0 LAB L100.1820 35.1-43.9 fl Normal RDW SD 40.3 LAB L100.1900 150-450 K/mm3 Normal PLT 300 LAB L100.2000 6.2-12.0 fl Normal MPV 9.5 LAB L100.2100 47-70 % High NEUT% 81.5 LAB L100.2200 19-41 % Low LY% 10.8 LAB L100.2300 0-10 % Normal MONO% 7.3 LAB L100.2400 0-5 % Normal EO% 0.1 LAB L100.2500 0-1 % Normal BASO% 0.1 LAB L100.2550 0.0-0.9 % Normal IM GRAN % 0.200 Result Comment: IG% - Immature Granulocytes (promyelocytes, myelocytes and metamyelocytes) > 1% indicates that a LEFT SHIFT is Present. LAB L100.2620 2.0-7.7 X10 3/uL High Absolute Neut 11.0 LAB L100.2720 0.83-4.51 X10 3/ul Normal Absolute Lymph 1.47 Performed By: #### L100.0100, L500.2500 #### [facility] [place], [address] BASIC METABOLIC Collected: 10/18/2017 Status: F Source: ACE PROFILE (BMP) 11:25 PM [facility] REPOSITORY TYPE CODE TESTS RESULT OUT OF RANGE REFERENCE UNITS LAB L501.0100 74-106 mg/dL Normal GLU 106 Result Comment: Fasting Glucose result from 100 to 125 mg/dL suggests IMPAIRED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 [id number] [facility] [id number] Number: Repository [address]Zuh: [phone]) [id number] [phone] () Date:[id number] [address]CS: 03/31/2018 Secondary NOT GIVENUNK Hanson Insurance:SELF PAY [facility] Number: Effective Repository Date:2018-03-31 11/20/2017 RORO Billy Primary ROROALETHEA Elena [facility] MutualPolicy Number: [id number] System [place] [place] Effective 5 [address] [place]ository [place] Date:2017-11-20 - [place] [id number]: [id number] [id number]: Name:Medical MutualPO (HP)Tel: [phone]) [address]AHJWSAHCT, (HP) (WP) [place] [address]NC: [phone] (WP) 11/20/2017 [facility] MutualPolicy Number: [id number] System [place] Effective 5 [address] Repository [place], [place] Date:2017-08-28 - [place] [id number]: [id number]: Name:Medical MutualPO (HP)Tel: [phone]) [address]PXPBEJRPD, (HP) ([place]) [place] [address]DN: [phone] (WP) 11/15/[address] Insurance[facility]: [facility] MutualPolicy Number: [id number] System [place] Effective 5 [place] [place]ository [place] Date:2017-11-12 - [place] [id number]: [id number] [id number]: Name:Medical MutualPO (HP)Tel: [phone]) [address]IJBSEONIY, (HP) ([place]) [place] [address]YT: [phone] (WP) 10/19/2017 RORO Billy Primary RORO Billy Holiness [facility]: Insurance:Medical [facility]: [facility] MutualPolicy Number: [id number] System [place]YE [place] Effective 5 [address] Repository [place] Date:2017-10-18 - [facility] [place] [id number]: [id number] [id number]: Name:Medical MutualPO (HP)Tel: [phone]) [address]LUWWJQRTG, (HP) ([place]) [place] [address]ZX: [phone] (WP) 10/18/2017 Roro M Primary [place] [id number] Insurance:[facility]: [facility] [id number] Number: Repository [id number]: [phone] [id number] [phone] (HP) Date:[id number] [address], [place] [address]CX: 10/18/2017 [facility] Number: Effective Repository Date:2017-10-18 10/02/2017 RORO Billy Primary RORO Billy Holiness [facility]: Insurance:Medical [facility]: [facility] MutualPolicy Number: [id number] System [place] [place] Effective 5 [address] Repository [place] Date:2017-10-02 - [place], [place] [id number]: [id number]: Name:Medical MutualPO (HP)Tel: [phone]) [address]XHVJAWLXA, (HP) (WP) [place] [address]TC: [phone] () 10/02/2017 RORO M [facility] RORO Billy [facility]: [facility] [id number] Repository [place] Number: [address] [place] [id number] [place] [id number]: Date:Plan Name:[facility] [id number]: (HP) (HP) 10/02/2017 [facility]: [facility] [id number] Repository Number: [address] [id number] [place] Date:Plan Name:[facility] [id number]: () 08/28/2017 RORO Billy [facility] RORO Billy [facility]: [facility] MutualPolicy Number: [id number] System [place]YE [place]AR Effective 5 [address] Repository [place] Date:2017-06-25 - [place] [id number]: [id number] [id number]: Name:[facility] ()Tel: [phone]) NKB [address], () () [place] [address]OH: [phone] (WP) 08/24/2017 RORO Billy [facility] RORO [facility]: Insurance:[facility]: [facility] MutualPolicy Number: [id number] System [place] [place] Effective 5 [address] Repository [place] Date:2017-08-21 - [place] [id number]: [id number] [id number]: Name:Medical MutualPO (HP)Tel: [phone]) [address] [address]BYSNZQCOW, (HP) ([place]) [place] [address]XM: [phone] (WP) 06/25/2017 RORO Billy Primary RORO [facility]: Insurance:[facility]: [facility] [id number] MutualPolicy Number: [id number] [facility] [place] Date:2017-05-01 - [place] [id number]: [id number] [id number]: Name:Medical MutualPO (HP)Tel: [phone]) [address] [address]SHPJUNZTX, (HP) ([place]) [place] [address]EF: [phone] (WP)
== END 2018-03-31 13:16 | disposition home or self-care (01) ==
PROVIDERS: Emergency Provider Emergency Medicine; Family Provider Internal Medicine; PCP Internal Medicine
DX: R55 Syncope and collapse (principal); F41.9 Anxiety disorder, unspecified; F32.9 Major depressive disorder, single episode, unspecified; Z72.0 Tobacco use; Z79.899 Other long term (current) drug therapy
CPT/HCPCS: 80048; 85025; 93005; 96360; 99285; J7030; A4216

== ENCOUNTER 2018-08-31 16:53 | Emergency (ER) | payer OTHER, SELFPAY ==
[2018-08-31 17:02] VITALS: BP 110/39; PULSE 103; RESP 18; TEMP 36.7; O2SAT 98; BMI 34.7
--- NOTE | 2018-08-31 17:14 | ED.VIS.GEN ---
History of Present Illness Chief Complaint: Anxiety Detail of Chief Complaint: Puncture wound proximal anterior left leg Informant: Patient Onset: Today Context: Sudden Onset Timing: Continuous Quality: Pain Location: anterior proximal left leg Current Severity: Mild Maximum Severity: Moderate Worsened by: Pressure on the puncture site Relieved by: Nothing Associated Symptoms: Anxiety attack Narrative: Patient is a 38-year-old woman who presents because of puncture wound anterior proximal third left leg secondary to nail. She is concerned because it was a nail. She is concerned because she has history of anxiety disorder with panic attacks. She denies paresthesia, anesthesia motor weakness. Last tetanus shot less than 10 years. Prior similar symptoms: No Recent Illness/Hospitalization: No - Past Medical History (1) History of anxiety disorder Status: Acute Past Medical History - Allergies and Home Meds Allergies/Adverse Reactions: Allergies erythromycin base [Erythromycin Base] Adverse Reaction (Verified 08/31/18 17:05) Vomiting Primary Care Physician: Glo Cao [Primary Care Provider] - Prior records reviewed: Yes Surgical History: noncontributory Lives: Alone Smoking Status: Current some day smoker Alcohol: Rare Review of Systems General: Denies: Chills, Fever, Malaise Musculoskeletal: Reports: Extremity Pain - In [place] to puncture wound. Denies: Myalgias, Arthralgias, Neck pain, Back pain, Swelling Skin: Reports: Wounds. Denies: Rash, Abrasions Neurological: Denies: Weakness, Parasthesia, Numbness Psych: Reports: Anxiety Hematologic: Denies: Easy bruising, Easy bleeding Physical Exam Vital Signs/Narrative: Vital Signs Temp Pulse Resp BP Pulse Ox 08/31/18 17:02 98.1 F 103 H 18 110/39 L 98 Inital Vital Signs reviewed: Yes General: Well nourished, Well developed, Acute Distress - Secondary to anxiety attack Head: Normocephalic, Atraumatic Eyes: Perrl, EOMI. Negative for: Pale conjunctiva, Scleral icterus, - ENT: Moist mucous membranes, No rhinorrhea Cardiovascular: Regular rate, Regular rhythm Respiratory: No distress Extremities: No edema, Tenderness, - - There is a 2 x 5 mm puncture wound proximal lateral anterior left leg. There is a hematoma noted. There is no tenderness over the tibia or fibula. DP and PT pulse are palpable. There is no evidence of infection. Negative for: Nontender Skin: Normal color, No rash, Trauma - Previously described Neurological: Alert, Oriented x3, Cranial nerves II-XII grossly intact, Normal Strength, Normal Sensation Psychological: - - Tearful anxious Diagnostic/Tx/Re-eval - Medical Decision Making Patient with puncture wound. Will have wound cleansed and placed on antibiotics. Based on pitcher there may be small debris. She did not land on a nail. She landed on a screw based on the photo she showed me. There may be microscopic dirt in the wound and reason for antibiotics. ED Disposition - Plan for ED Patient: Disposition: Home or Assisted Living Diagnosis: Puncture wound without foreign body, left lower leg, initial encounter, Anxiety attack Instructions: ED Wound Puncture General Prescriptions: Amox/Clavulanate Tablet [Augmentin Tablet] 875 mg PO Q12H #10 tab Referrals: Glo Cao [Primary Care Provider] - 2 Days for wound check Additional Instructions: If you are not able to be seen by Glo Cao in 2 days return to the emergency department for reevaluation of your puncture wound.
[2018-08-31] MEDS: LORazepam 0.5 MG Tablet PO (17:19)
[2018-08-31] MEDS: Amox/Clavulanate 875 MG Tablet PO (17:19)
[2018-08-31] MEDS: Diphth,Pertuss(Acell),Tet Vac 0.5 ML Vial IM (17:53)
--- NOTE | 2018-08-31 18:00 | ED.RN ---
PT REFUSES TO STAY FOR SHOT TIME, IRATE THAT SHE IS NOT GIVEN NARCOTICS FOR PAIN. STATES SHE IS GOING HOME TO :TAKE SOMETHING FOR THE PAIN. APPEARS LESS ANXIOUS, NORMAL RESP RATE, LAYING CALMLY IN BED.
== END 2018-08-31 18:01 | disposition home or self-care (01) ==
LOC: ED 17:28
PROVIDERS: Emergency Provider Emergency Medicine; Family Provider Internal Medicine; PCP Internal Medicine
DX: S81.832A Puncture wound without foreign body, left lower leg, initial encounter (principal); F41.9 Anxiety disorder, unspecified; F17.200 Nicotine dependence, unspecified, uncomplicated; Z79.899 Other long term (current) drug therapy; W45.0XXA Nail entering through skin, initial encounter; Y93.89 Activity, other specified; Y92.89 Other specified places as the place of occurrence of the external cause; Y99.8 Other external cause status
CPT/HCPCS: 90471; 90715; 99284